=== PATIENT | female | born 1970 | race Caucasian/White ===

== ENCOUNTER 2018-12-31 21:00 | Emergency (ER) | payer BC, OTHER ==
[2018-12-31 21:16] VITALS: BP 121/87
[2018-12-31] MEDS ORDERED: predniSONE 20 MG TABLET PO ONE (21:37)
--- NOTE | 2018-12-31 21:47 | ED Physician Documentation ---
Ear Complaints - HPI Stated Complaint: rt ear pain Chief Complaint: Earache Additional Information: Patient presents to ED with right ear pain. Patient reports finishing Augmentin for ear infection about 4 days ago. Tonight the ear pain has begun again tonight. She states she took ibuprofen prior to arrival and admits her ear feels better. She denies fever. Timing: still present Location of Pain: R ear Severity: mild Associated Symptoms: sharp pain. denies: fever - ROS CONST: no problems CVS/RESP: none GI/: denies: nausea, vomiting MS/SKIN/LYMPH: none NEURO/PSYCH: none - PAST HX Past History: frequent ear infections Allergies/Adverse Reactions: Allergies Allergy/AdvReac Type Severity Reaction Status Date / Time No Known Drug Allergies Allergy Verified 12/31/18 21:16 Home Medications: Ambulatory Orders Medication Instructions Recorded Neomycin/Polymyxin B/Hydrocort 10 ml OT TID #1 bottle 12/31/18 [Cortisporin Otic] Norethindrone AC-Eth Estradiol 1 tab PO DIRECTED 12/31/18 [Microgestin 21 1-20 Tablet] - SOCIAL HX Smoking History: non-smoker Alcohol Use: none Drug Use: none - FAMILY HX Family History: No - VITAL SIGNS Vital Signs: Vital Signs Temp Pulse Resp BP Pulse Ox 97.6 F 77 16 121/87 99 12/31/18 21:00 12/31/18 21:00 12/31/18 21:00 12/31/18 21:00 12/31/18 21:00 - REVIEWED ASSESSMENTS Nursing Assessment Reviewed: Yes Vitals Reviewed: Yes ED Results Lab/Radiology - Orders Orders: ED Orders Category Date Time Status predniSONE [Deltasone] Med 12/31/18 21:37 Once 20 mg PO NOW ONE Ear Complaint Physical Exam - EXAM General Appearance: no acute distress, alert Ear: pain w movement of auricl, right, erythema, TM's nml Mouth/Throat: pharynx nml Nose: nml inspection Head/Neck: atraumatic Eye: eyes nml inspection Resp/CVS: chest non-tender, breath sounds nml, heart sounds nml Abdomen: non-tender Skin: nml color Neuro/Psych: oriented x3, mood/affect nml Discharge Clincal Impression: Otitis externa Qualifiers: Otitis externa type: diffuse Chronicity: chronic Laterality: right Qualified Code(s): H60.311 - Diffuse otitis externa, right ear Prescriptions: Neomycin/Polymyxin B/Hydrocort [Cortisporin Otic] 10 ml OT TID #1 bottle Referrals: Luisa Veloz MD [Primary Care Provider] - 2 Days Additional Instructions: 1. Ibuprofen as needed for pain 2. Cortisporin drops to affected ear x 10 days 3. Use Swim Ear drying drops after showers, swimming and bathing. 4. Follow up with PCP within 1 week 5. Return to ER for new or worsening symptoms Condition: Stable Disposition: 01 HOME, SELF-CARE Decision to Admit: NO Date of Decison to Admit: 12/31/18 Decision Time: 21:54
== END 2018-12-31 21:50 | disposition home or self-care (01) ==
LOC: ED 21:00
DX: H60.311 Diffuse otitis externa, right ear (principal)
CPT/HCPCS: 99283